=== PATIENT | female | born 1985 | race Caucasian/White ===

== ENCOUNTER 2018-02-26 14:37 | Emergency (ER) | payer OTHER ==
[2018-02-26 14:59] VITALS: BP 133/89
[2018-02-26] MEDS ORDERED: SULFAMETHOX/TMP 800/160 MG 1 TAB PO ONE (15:16)
[2018-02-26] MEDS ORDERED: predniSONE 20 MG TAB PO ONE (15:16)
--- NOTE | 2018-02-26 15:16 | EDPHY ---
H & P Stated Complaint: rash on left lower extremity for 7 days,hives Time Seen by Provider: 02/26/18 14:51 HPI/ROS: CHIEF COMPLAINT: Cellulitis HISTORY OF PRESENT ILLNESS: Patient is a 33-year-old female who recently returned from a trip to [facility] 1 week ago. Just before leaving [facility] she noticed a scratch or bite to her left posterior thigh/gluteal region. Over the last week it has continued to spread and become erythematous. She also developed some hives around the rash and on her arms and back. No fluctuance or abscess. No purulent drainage. She does have some crusting and weeping. Yesterday she presented to an urgent care who gave her dose of Rocephin and started her on Keflex. She also started taking hydroxyzine and steroid cream. She has now been on antibiotics for 24 hr. She states that her rash is increased slightly and her hives have increased significantly. She has not had a fever. She is not feel weak or tired. No nausea vomiting. She is not diabetic. She is not immunocompromised. Severity: Moderate Modifying factors: None REVIEW OF SYSTEMS: Constitutional: denies: chills, fever, recent illness, recent injury EENTM: denies: blurred vision, double vision, nose congestion Respiratory: denies: cough, shortness of breath Cardiac: denies: chest pain, irregular heart rate, lightheadedness, palpitations Gastrointestinal/Abdominal: denies: abdominal pain, diarrhea, nausea, vomiting, blood streaked stools Genitourinary: denies: dysuria, frequency, hematuria, pain Musculoskeletal: denies: joint pain, muscle pain Skin: The see HPI Neurological: denies: headache, numbness, paresthesia, tingling, dizziness, weakness Hematologic/Lymphatic: denies: blood clots, easy bleeding, easy bruising Immunologic/allergic: denies: HIV/AIDS, transplant 10 systems reviewed and negative except as noted EXAM: GENERAL: Well-appearing, well-nourished and in no acute distress. HEAD: Atraumatic, normocephalic. EYES: Pupils equal round and reactive to light, extraocular movements intact, sclera anicteric, conjunctiva are normal. ENT: TMs normal, nares patent, oropharynx clear without exudates. Moist mucous membranes. No oral involvement NECK: Normal range of motion, supple without lymphadenopathy or JVD. LUNGS: Breath sounds clear to auscultation bilaterally and equal. No wheezes rales or rhonchi. HEART: Regular rate and rhythm without murmurs, rubs or gallops. ABDOMEN: Soft, nontender, normoactive bowel sounds. No guarding, no rebound. No masses appreciated. BACK: No CVA tenderness, no spinal tenderness, step-offs or deformities EXTREMITIES: Normal range of motion, no pitting or edema. No clubbing or cyanosis. NEUROLOGICAL: Cranial nerves II through XII grossly intact. Normal speech, normal gait. 5/5 strength, normal movement in all extremities, normal sensation , normal reflexes PSYCH: Normal mood, normal affect. SKIN: Cellulitis left posterior thigh. Yesterday the urticarial aspect was outlined. The urticaria is definitely expanded beyond this today and is also on her arms back and other leg. The cellulitis itself is also possibly increased slightly. It is dark red. No fluctuance or abscess palpated. Central region of scaling. Source: Patient Exam Limitations: No limitations - Personal History LMP (Females 10-55): 15-21 Days Ago Current Tetanus Diphtheria and Acellular Pertussis (TDAP): Yes Tetanus Vaccine Date: 2016 - Medical/Surgical History Hx Asthma: No Hx Chronic Respiratory Disease: No Hx Diabetes: No Hx Cardiac Disease: No Hx Renal Disease: No Hx Cirrhosis: No Hx Alcoholism: No Hx HIV/AIDS: No Hx Splenectomy or Spleen Trauma: No Other PMH: denies - Family History Significant Family History: No pertinent family hx - Social History Smoking Status: Never smoked Alcohol Use: Sober Constitutional: Initial Vital Signs Temperature (C) 36.9 C 02/26/18 14:55 Heart Rate 86 02/26/18 14:55 Respiratory Rate 14 02/26/18 14:55 Blood Pressure 133/89 H 02/26/18 14:55 O2 Sat (%) 97 02/26/18 14:55 O2 Delivery Mode Room Air Allergies/Adverse Reactions: No Known Allergies Allergy (Unverified 02/26/18 14:54) Home Medications: Medication Instructions Recorded Hydroxyzine HCl 02/26/18 Keflex 02/26/18 Sulfamethox/Tmp 800/160 mg 1 tab PO BID #14 tab 02/26/18 [Bactrim Ds] predniSONE 60 mg PO DAILY #9 tab 02/26/18 Medical Decision Making ED Course/Re-evaluation: The patient appears to have cellulitis with an urticarial type reaction. This began before antibiotics. The cellulitis appears consistent with a Streptococcus type of the infection. She is on Keflex however her symptoms seem to be worsening slightly. Also however she has only been on antibiotics for about 24 hr. She is not toxic-appearing. I recommended blood cultures and antihistamines and steroids and IV vancomycin with either admission to the hospital or returning for repeat vancomycin doses. Patient was somewhat hesitant with this and tells me that she does not feel bad or sick other than having the rash and some itching from the urticaria. We discussed options. At this point we agreed to add Bactrim to her regimen also a day or 2 dose of prednisone. She will keep taking the hydroxyzine. She will return in 24 hr for recheck possibly admission if her symptoms worsen. We also discussed indications for returning sooner. Her was in the room and agrees with this plan. Differential Diagnosis: Partial list of the Differential diagnosis considered include but were not limited to; cellulitis, urticaria and although unlikely based on the history and physical exam, I also considered abscess, sepsis, endocarditis, Raygoza Keven's. I discussed these differential diagnoses and the plan with the patient as well as the usual and expected course. The patient understands that the diagnosis is provisional and that in medicine we are not always correct and that further workup is often warranted. Usual and customary warnings were given. All of the patient's questions were answered. The patient was instructed to return to the emergency department should the symptoms at all worsen or return, otherwise to followup with the physician as we discussed. - Data Points Medications Given: Discontinued Medications Prednisone (Prednisone) 60 mg PO EDNOW ONE Stop: 02/26/18 15:17 Last Admin: 02/26/18 15:24 Dose: 60 mg Trimethoprim/Sulfamethoxazole (Bactrim Ds) 1 ea PO EDNOW ONE PRN Reason: Protocol Stop: 02/26/18 15:17 Last Admin: 02/26/18 15:25 Dose: 1 ea Departure - Departure Disposition: Home, Routine, Self-Care Clinical Impression: Cellulitis Qualifiers: Site of cellulitis: extremity Site of cellulitis of extremity: lower extremity Laterality: left Qualified Code(s): L03.116 - Cellulitis of left lower limb Condition: Fair Instructions: Cellulitis (ED) Referrals: Redal,Germán A, MD [Primary Care Provider] - 2-3 days, call for appt. Prescriptions: predniSONE 60 mg PO DAILY #9 tab Sulfamethox/Tmp 800/160 mg [Bactrim Ds] 1 tab PO BID #14 tab
== END 2018-02-26 15:36 | disposition home or self-care (01) ==
LOC: CED 14:37
DX: L03.116 Cellulitis of left lower limb (principal)
CPT/HCPCS: 99284-ER; J7512